=== PATIENT | male | born 1965 | race Caucasian/White ===

== ENCOUNTER 2018-07-05 14:06 | Emergency (ER) | payer OTHER ==
[~2018-07-05] VITALS: Ht 172.7 cm; Wt 95.3 kg
[2018-07-05] MEDS ORDERED: LISINOPRIL40 MG PO (14:20)
[2018-07-05 14:36] LABS: ABSOLUTE EOSINOPHILS 0.2 thou/uL (0.0-0.7); ABSOLUTE LYMPHOCYTES 1.7 thou/uL (0.8-5.3); ABSOLUTE MONOCYTES 0.4 thou/uL (0.0-1.2); ABSOLUTE NEUTROPHILS 2.5 thou/uL (1.6-8.1); EOSINOPHILS 4.8 %; HEMATOCRIT 45.1 % (42.0-52.0); HEMOGLOBIN 15.7 gm/dL (14.0-18.0); LYMPHOCYTES 35.3 %; MCH 31.6 pg (26.0-34.0); MCHC 34.9 g/dL (28.0-37.0); MCV 90.6 fL (80.0-100.0); MONOCYTES 8.8 %; NUCLEATED RBCS 0 /100WBC; PLATELET COUNT* 194 thou/uL (150-400); POLYS 50.1 %; RBC 4.98 mil/uL (4.50-6.00); RDW-CV 12.8 % (10.5-14.5); WBC 4.9 thou/uL (4.0-11.0)
[2018-07-05 14:41] LABS: ANION GAP 9 mmol/L (7-16); BUN 21 mg/dL (7-18); CALCIUM 9.4 mg/dL (8.5-10.1); CHLORIDE 102 mmol/L (98-107); CO2 28 mmol/L (21-32); CREATININE 1.1 mg/dL (0.6-1.3); GLUCOSE 100 mg/dL (70-99); POTASSIUM 4.2 mmol/L (3.5-5.1); SODIUM 139 mmol/L (136-145)
[2018-07-05 14:45] LABS: PROTIME 10.6 Seconds (9.20-11.50)
[2018-07-05 14:51] LABS: ALBUMIN 3.5 g/dL (3.4-5.0); ALKALINE PHOSPHATASE 63 U/L (46-116); LIPASE 201 U/L (73-393); NT-PRO BRAIN NAT PEPTIDE 124 pg/mL (<300); SGOT 76 U/L (15-37); SGPT 128 U/L (30-65); TOTAL BILIRUBIN 0.3 mg/dL (<0.1-1.0); TOTAL PROTEIN 8.3 g/dL (6.4-8.2); TROPONIN-I LEVEL <0.06 ng/mL (<0.06)
[2018-07-05 17:13] VITALS: BP 158/108
--- NOTE | 2018-07-06 10:56 | EKG ---
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
== END 2018-07-05 17:13 | disposition home or self-care (01) ==
LOC: M.ERS 14:06
PROVIDERS: Personal Emergency Response Attendant
DX: I16.0 Hypertensive urgency (principal); I10 Essential (primary) hypertension

== ENCOUNTER 2018-11-23 10:26 | Emergency (ER) | payer OTHER ==
[~2018-11-23] VITALS: Ht 172.7 cm; Wt 95.3 kg
[~2018-11-23 10:26] MED LIST: LISINOPRIL40 MG PO
[2018-11-23 10:57] LABS: ABSOLUTE BASOPHILS 0.1 thou/uL (0.0-0.2); ABSOLUTE EOSINOPHILS 0.2 thou/uL (0.0-0.7); ABSOLUTE MONOCYTES 0.4 thou/uL (0.0-1.2); ABSOLUTE NEUTROPHILS 2.9 thou/uL (1.6-8.1); BASOPHILS 1.3 %; EOSINOPHILS 3.8 %; HEMATOCRIT 44.3 % (42.0-52.0); HEMOGLOBIN 15.6 gm/dL (14.0-18.0); LYMPHOCYTES 36.2 %; MCH 32.6 pg (26.0-34.0); MCHC 35.3 g/dL (28.0-37.0); MCV 92.3 fL (80.0-100.0); MONOCYTES 6.5 %; MPV 10.3 fl. (7.2-11.1); NUCLEATED RBCS 0 /100WBC; PLATELET COUNT* 218 thou/uL (150-400); POLYS 52.2 %; RDW-CV 12.5 % (10.5-14.5); WBC 5.5 thou/uL (4.0-11.0)
[2018-11-23 11:06] LABS: ANION GAP 8 mmol/L (7-16); BUN 21 mg/dL (7-18); CALCIUM 9.5 mg/dL (8.5-10.1); CHLORIDE 101 mmol/L (98-107); CO2 29 mmol/L (21-32); CREATININE 1.1 mg/dL (0.6-1.3); GLUCOSE 99 mg/dL (70-99); POTASSIUM 3.9 mmol/L (3.5-5.1); SODIUM 138 mmol/L (136-145)
[2018-11-23 11:07] LABS: PROTIME 10.7 Seconds (9.20-11.50)
[2018-11-23 11:17] LABS: ALBUMIN 3.9 g/dL (3.4-5.0); ALKALINE PHOSPHATASE 64 U/L (46-116); LIPASE 272 U/L (73-393); NT-PRO BRAIN NAT PEPTIDE 130 pg/mL (<300); SGOT 65 U/L (15-37); SGPT 122 U/L (30-65); TOTAL BILIRUBIN 0.3 mg/dL (<0.1-1.0); TOTAL PROTEIN 8.4 g/dL (6.4-8.2); TROPONIN-I LEVEL <0.06 ng/mL (<0.06)
[2018-11-23 12:43] LABS: URINE BILIRUBIN NEGATIVE (Negative); URINE BLOOD NEGATIVE (Negative); URINE CLARITY CLEAR; URINE COLOR YELLOW; URINE GLUCOSE-RANDOM NEGATIVE (Negative); URINE KETONES NEGATIVE (Negative); URINE LEUKOCYTES-REFLEX NEGATIVE (Negative); URINE NITRITE-REFLEX NEGATIVE (Negative); URINE PROTEIN NEGATIVE (Negative); URINE SPECIFIC GRAVITY 1.025 (1.005-1.030); URINE UROBILINOGEN 0.2 E.U./dl (0.2-1.0)
[2018-11-23 12:53] LABS: AMP/METHAMP Negative (Negative); BARBITURATES Negative (Negative); BENZODIAZEPINES Negative (Negative); COCAINE Negative (Negative); METHADONE Negative (Negative); OPIATES Negative (Negative); PCP Negative (Negative); THC Negative (Negative)
[2018-11-23] MEDS ORDERED: HYDROCHLOROTHIA25 M2 PO (13:16)
[2018-11-23 13:31] VITALS: BP 141/84
--- NOTE | 2018-11-23 16:18 | EKG ---
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 : 1965 Requested By: Mary Alice Delarosa Order Number: [id number] MD: nEoc Garcia Measurements Intervals Murray Rate: 61 P: 43 IN: 172 QRS: 16 QRSD: 84 T: 22 QT: 401 QTc: 404 Interpretive Statements Sinus rhythm Anteroseptal infarct, age indeterminate, possible Compared to ECG 07/05/2018 14:22:09 Myocardial infarct finding now present Electronically Signed On 11-23-2018 16:18:10 CDT by Enoc Garcia [email or web address] <ELECTRONICALLY SIGNED> By: Enoc Garcia MD, [facility] 11/23/18 1618 1047 46 Enoc Garcia MD, FAC /EPI
== END 2018-11-23 13:34 | disposition home or self-care (01) ==
LOC: M.ERS 10:26
PROVIDERS: Personal Emergency Response Attendant
DX: I10 Essential (primary) hypertension (principal); R10.9 Unspecified abdominal pain

== ENCOUNTER → 2019-01-10 | Outpatient (CLI) | payer OTHER ==
[~2019-01-10] MED LIST changes: +HYDROCHLOROTHIA25 M2 PO
== END ==
LOC: M.MRI 13:09
DX: S83.242A Other tear of medial meniscus, current injury, left knee, initial encounter (principal); M17.12 Unilateral primary osteoarthritis, left knee; X58.XXXA Exposure to other specified factors, initial encounter; Y93.89 Activity, other specified; Y92.89 Other specified places as the place of occurrence of the external cause; Y99.8 Other external cause status

== ENCOUNTER 2019-05-26 20:53 | Emergency (ER) | payer OTHER ==
[~2019-05-26] VITALS: Ht 172.7 cm; Wt 90.7 kg
[2019-05-26 20:59] VITALS: BP 162/114
[2019-05-26] MEDS ORDERED: BUPROPION HCL150 M1 (21:06)
[2019-05-26] MEDS ORDERED: CLONAZEPAM 0.50.5 M1 (21:07)
[2019-05-26] MEDS ORDERED: VENLAFAXINE HCL75 M1 (21:07)
[2019-05-26] MEDS ORDERED: CARVEDILOL PO (21:08)
[2019-05-26] MEDS ORDERED: VENTOLIN HFA 1818 GM INH (21:29)
[2019-05-26] MEDS ORDERED: PREDNISONE 20 M20 M1 PO (21:29)
[2019-05-26] MEDS ORDERED: ZPAK PO (21:29)
== END 2019-05-26 21:46 | disposition home or self-care (01) ==
LOC: M.ERS 20:53
DX: J40 Bronchitis, not specified as acute or chronic (principal); I10 Essential (primary) hypertension

== ENCOUNTER → 2019-07-09 | Outpatient (CLI) | payer OTHER ==
[~2019-07-09] MED LIST changes: +BUPROPION HCL150 M1; +CARVEDILOL PO; +CLONAZEPAM 0.50.5 M1; +PREDNISONE 20 M20 M1 PO; +VENLAFAXINE HCL75 M1; +VENTOLIN HFA 1818 GM INH; +ZPAK PO
== END ==
LOC: M.LAB 09:32
PROVIDERS: ATTEND Orthopaedic Surgery
DX: Z01.812 Encounter for preprocedural laboratory examination (principal)